=== PATIENT | female | born 1955 | race Caucasian/White ===

== ENCOUNTER 2023-12-16 04:15 | Day surgery (SDC) | payer OTHER ==
[2023-12-11 13:35] VITALS: BMI 23.8
[2023-12-16] MEDS ORDERED: PROPOFOL 40 ML ONE (09:48)
[2023-12-16 11:01] VITALS: BP 120/60; PULSE 55; RESP 16; TEMP 96.8
== END 2023-12-16 11:05 | disposition home or self-care (01) ==
LOC: JASU-SURG 04:15
PROVIDERS: ATTEND Urology
PROC: 0TF3XZZ Fragmentation in Right Kidney Pelvis, External Approach (ICD-10-PCS; principal; 2023-12-16 10:30)
DX: N20.0 Calculus of kidney (principal)